=== PATIENT | male | born 1995 | race Caucasian/White ===

== ENCOUNTER → 2017-05-19 | Outpatient (CLI) | payer OTHER ==
--- NOTE | 2017-05-19 15:11 | Diagnostic Imaging Report ---
EXAM: Scrotal Ultrasound with Duplex INDICATION: \S\RT TESTICULAR PAIN COMPARISON: None TECHNIQUE: Transverse and longitudinal images were obtained of the scrotum with grayscale imaging, color Doppler and spectral waveform analysis. FINDINGS: Right testis: Size: 5.1 x 2.6 x 3.2 cm, normal in size. Echogenicity: Normal Mass/Cysts: None Left testis: Size: 4.3 x 2.5 x 3.2 cm, normal in size. Echogenicity: Normal Mass/Cysts: None Epididymis: Appearance: Normal in size without increased vascularity. Mass/Cysts: 0.4 x 0.5 x 0.5 cm right epididymal head cyst/spermatocele. Extratesticular: Masses: None Hydrocele: Trace Varicocele: None Doppler: Normal arterial flow to both testes and symmetrical flow on color Doppler evaluation is seen. No evidence of testicular torsion. IMPRESSION: 1. No evidence of testicular torsion. 2. Trace nonspecific right hydrocele. Otherwise, unremarkable. Signed by: Dr. Genaro Fajardo MD on 05/19/2017 3:07 PM
== END ==
LOC: US 13:18
PROVIDERS: ATTEND Family Medicine
DX: N50.9 Disorder of male genital organs, unspecified (principal)
CPT/HCPCS: 76870; 93976